=== PATIENT | female | born 1975 | race Caucasian/White ===

== ENCOUNTER 2017-07-09 17:14 | Emergency (ER) | payer BC, OTHER ==
[2017-07-09 17:47] VITALS: BP 98/63
--- NOTE | 2017-07-09 18:07 | UC ---
Skin Complaint HPI - HPI Summary HPI Summary: Is concerned she may have had a tick bite on her neck--attached for less than one day. - History of Current Complaint Chief Complaint: UCSkin Time Seen by Provider: 07/09/17 18:01 Stated Complaint: POSS BUG BITE Hx Obtained From: Patient Hx Last Menstrual Period: 04/06 ?: Yes Onset/Duration: Sudden Onset Timing: Constant Pain Intensity: 0 Pain Scale Used: 0-10 Numeric Location: Discrete Aggravating Factor(s): Nothing Alleviating Factor(s): Nothing Associated Signs & Symptoms: Positive: Negative Related History: Possible Reaction to: Insect - Allergy/Home Medications Allergies/Adverse Reactions: Allergies Allergy/AdvReac Type Severity Reaction Status Date / Time No Known Allergies Allergy Verified 07/09/17 17:32 Home Medications: Home Medications Cholecalciferol TAB* [Vitamin D TAB*] 1,000 unit PO DAILY 07/09/17 [History Confirmed 07/09/17] Naltrexone TAB* 3 mg PO BEDTIME 07/09/17 [History Confirmed 07/09/17] Pnv No.103/Folic/Om3s/Fish Oil [ Gummies/Dha & Fo 0.4-32.5 mg] 1 chw PO DAILY 07/09/17 [History Confirmed 07/09/17] Progesterone SUPP (NF) [Endometrin SUPP (NF)] 100 mg VAGINAL BID 07/09/17 [ History Confirmed 07/09/17] Review of Systems Constitutional: Negative Skin: Negative Eyes: Negative ENT: Negative Respiratory: Negative Cardiovascular: Negative Gastrointestinal: Negative Genitourinary: Negative Motor: Negative Neurovascular: Negative Musculoskeletal: Negative Neurological: Negative Psychological: Negative Is Patient Immunocompromised?: No All Other Systems Reviewed And Are Negative: Yes PMH/Surg Hx/FS Hx/Imm Hx Previously Healthy: Yes - Surgical History Surgical History: Yes Surgery Procedure, Year, and Place: LAPROSCOPIC FOR ENDOMETIOSIS - Family History Known Family History: Positive: None - Social History Occupation: Employed Full-time Lives: With Family Alcohol Use: None Substance Use Type: None Smoking Status (MU): Never Smoked Tobacco Physical Exam Triage Information Reviewed: Yes Appearance: Well-Appearing, No Pain Distress, Well-Nourished Vital Signs: Initial Vital Signs Temp 99.1 F 07/09/17 17:38 Pulse 81 07/09/17 17:38 Resp 20 07/09/17 17:38 BP 98/63 07/09/17 17:38 Pulse Ox 100 07/09/17 17:38 Vital Signs Reviewed: Yes Eye Exam: Normal Eyes: Positive: Conjunctiva Clear ENT Exam: Normal ENT: Positive: Normal ENT inspection, Hearing grossly normal, Pharynx normal, Uvula midline. Negative: Muffled voice, Hoarse voice, Dental tenderness Dental Exam: Normal Neck exam: Normal Neck: Positive: Supple, Nontender Respiratory Exam: Normal Respiratory: Positive: Chest non-tender, Lungs clear, Normal breath sounds, No respiratory distress, No accessory muscle use Cardiovascular Exam: Normal Cardiovascular: Positive: RRR, No Murmur, Pulses Normal, Brisk Capillary Refill Musculoskeletal Exam: Normal Musculoskeletal: Positive: Strength Intact, ROM Intact, No Edema Neurological Exam: Normal Neurological: Positive: Alert, Muscle Tone Normal Psychological Exam: Normal Psychological: Positive: Normal Response To Family Skin: Positive: Other - small "insect bite" right side of neck Course/Dx - Course Course Of Treatment: soap and water wash observe for s/s of Lyme follow with pcp , reassurace provided - Diagnoses Provider Diagnoses: insect bite right side of neck Discharge - Sign-Out/Discharge Documenting (check all that apply): Discharge/Admit/Transfer - Discharge Plan Condition: Stable Disposition: HOME Patient Education Materials: Tick Bite (ED) Referrals: Mare Ann MD [Primary Care Provider] - If Needed - Billing Disposition and Condition Condition: STABLE Disposition: Home
== END 2017-07-09 18:12 | disposition home or self-care (01) ==
LOC: UCCORT 17:14
DX: S10.96XA Insect bite of unspecified part of neck, initial encounter (principal); W57.XXXA Bitten or stung by nonvenomous insect and other nonvenomous arthropods, initial encounter; Y93.9 Activity, unspecified; Y92.9 Unspecified place or not applicable
CPT/HCPCS: 99201; G0463

== ENCOUNTER 2018-01-14 19:10 | Inpatient (IN) | payer OTHER ==
[2018-01-14] MEDS ORDERED: Penicillin G Potassium IV* 5,000,000 UNITS in NS 0.9% 100 ML* 100 ML IVPB ONE (20:10)
[2018-01-14 20:12] LABS: ABS Basophils 0 10^3/ul (0-0.2); ABS Eosinophils 0 10^3/ul (0-0.6); ABS Lymphocytes 1.1 10^3/ul (1.0-4.8); ABS Neutrophils 11.1 10^3/ul (1.5-7.7); ABS Nucleated RBC 0 10^3/ul; Eosinophil % 0.3 %; Hematocrit 40 % (35-47); Hemoglobin 13.7 g/dl (12.0-16.0); Lymphocyte % 8.5 %; Mean Corpuscular HGB Conc 35 g/dl (31-36); Mean Corpuscular Hemoglobin 31 pg (27-31); Mean Corpuscular Volume 90 fL (80-97); Mean Platelet Volume 8.3 fL (7.4-10.4); Nucleated Red Blood Cells % 0.1; Platelet Count 187 10^3/ul (150-450); Red Cell Distribution Width 17 % (10.5-15); White Blood Count 13.3 10^3/ul (3.5-10.8)
--- NOTE | 2018-01-14 21:17 | HP ---
General Information - Reason for Visit labor - General Information Maternal Age: 42 Grav: 1 Para: 0 SAB: 0 IEA: 0 Estimated Due Date: 01/22/18 Determined By: LMP Gestational Age in Weeks/Days: 38 w 6d Maternal Blood Type and Rh: A Positive - Results this Serology/RPR Result: Non-Reactive Rubella Result: Immune HBsAg Result: Negative HIV Result: Negative GBS Culture Result: Positive Past Medical History Past Medical History Comment: infertility, conceived via IVF (donor egg, 's sperm) Past Surgical History Comment: LEEP Laparoscopy for endometriosis (10/2015) Pertinent Family History: See Records - Antepartal Records Antepartal Records: Reviewed, Complicated by: Review of Systems Constitutional: Comfortable CV Complaint: No Respiratory: Shortness of Breath: No Gastrointestinal: No Nausea/Vomiting, Soft Stool Genitourinary: No Leaking Fluid Musculoskeletal: Contractions Neurological: No Headache Movement: Normal Exam Allergies/Adverse Reactions: Allergies No Known Allergies Allergy (Verified 07/09/17 17:32) Vital Signs 01/14/18 19:15 Temperature 99.6 F Pulse Rate 93 Respiratory 17 Rate Blood Pressure 125/70 (mmHg) O2 Sat by Pulse 99 Oximetry Lab Values - Entire Visit: Laboratory Tests 01/14/18 01/14/18 19:55 19:55 WBC 13.3 H RBC 4.40 Hgb 13.7 Hct 40 MCV 90 MCH 31 MCHC 35 RDW 17 H Plt Count 187 MPV 8.3 Neut % (Auto) 83.5 Lymph % (Auto) 8.5 [place] % (Auto) 7.4 Eos % (Auto) 0.3 Baso % (Auto) 0.3 Absolute Neuts (auto) 11.1 H Absolute Lymphs (auto) 1.1 Absolute Monos (auto) 1.0 H Absolute Eos (auto) 0 Absolute Basos (auto) 0 Absolute Nucleated RBC 0 Nucleated RBC % 0.1 Blood Type A Positive Antibody Screen Negative - Measurements Height: 5 ft 3 in Weight: 143 lb Weight in lbs: 143.237245 Body Mass Index (BMI): 25.3 Pre- Weight: 118 lb Weight Gained This : 25 lbs and 0 ozs - Exam Breast: - - soft, no masses Extremities: No Edema Heart: Normal Rhythm/Heart Sounds HEENT: No Significant Findings Lungs: Clear Bilaterally Thyroid: No Thyromegaly - Ultrasound/Biophysical Profile Ultrasound Status: Not Done Targeted Exam Findings Estimated Weight: EFW 6.5 lbs Cervical Exam: 4cm Effacement: 100% Station: -1 Presenting Part: Vertex Membrane Status: Intact EFM Findings - External Monitor Findings Baseline Heart Rate: 140 External Monitor Findings: Accelerations Present, No Pattern of Variable or Late Decelerations, Variability Moderate External Monitor Findings Comment: category 1 Contractions: Moderate Contraction Frequency: every 3 min Assessment/Plan - Assessment elderly primigravida 38w 5 days in labor - Obstetrical Risk Factors Obstetrical Risk Factors: GBS Positive, Assisted Reproduction, IUGR - Plan Plan: Admit - Anticipate Vaginal Delivery Plan Comment: will begin PCN prophylaxis - Date/Time of Admission Date of Admission: 01/14/18 Time of Admission: 19:40
[2018-01-15] MEDS ORDERED: Penicillin G Potassium IV* 2,500,000 UNITS in NS 0.9% 100 ML* 100 ML IVPB SCH (01:00)
[2018-01-15] MEDS ORDERED: Oxytocin in LR* 20 UNITS/1,000 ML BAG IVPB ONE (02:06)
[2018-01-15] MEDS ORDERED: Acetaminophen TAB* 325 MG PO PRN (02:31)
[2018-01-15] MEDS ORDERED: Dibucaine 1% 28.35 GM TUBE PR PRN (02:31)
[2018-01-15] MEDS ORDERED: Glycerin ADULT SUPP PR PRN (02:31)
[2018-01-15] MEDS ORDERED: Witch Hazel PAD* JAR TOPICAL PRN (02:31)
--- NOTE | 2018-01-15 02:46 | PROCNOTE ---
[facility] OB: Delivery Note - Delivery A Date of : 01/15/18 Time of : 01:58 [place] Sex: Male Score 1 Minute: 6 Score 5 Minutes: 8 Gestational Age in Weeks and Days at Delivery: 39 Weeks and 0 Days Delivery Method: Spontaneous Vaginal Labor: Spontaneous Did Patient attempt ?: N/A, No Previous Amniotic Fluid: Clear Anesthesia/Analgesia: Nitrous-Labor Delivered By: Breanna Rogers - Nursery Level of Nursery: Regular/Bedside - Perineum Perineal Injury Comment: R labial laceration, not repaired - Events Delivery Events of Note: Full Course of Antibiotics - Additional Delivery Notes Additional Delivery Notes: SVB L[facility], MADDISON, over intact perineum after 33" 2nd stage. with good HR but decreased tone, resp rate, to warmer for chest PT, CPAP. Placenta osmany, normal in size but maternal cotyledons smoother than usual over large portion. Fundus firm with massage. IV with pitocin running. EBL 200cc. Total LOL 10'15". Baby to maternal abd at approx 15 min/age.
[2018-01-15] MEDS ORDERED: Oxytocin in LR* 20 UNITS/1,000 ML BAG IVPB SCH (03:00)
[2018-01-15] MEDS: Docusate CAP* 100 MG PO SCH ×3 (08:55→21:14)
[2018-01-15] MEDS: Ibuprofen TAB* 600 MG PO PRN (21:14)
[2018-01-16 06:48] LABS: Hematocrit 34 % (35-47); Hemoglobin 11.7 g/dl (12.0-16.0); Mean Corpuscular HGB Conc 35 g/dl (31-36); Mean Corpuscular Hemoglobin 32 pg (27-31); Mean Corpuscular Volume 92 fL (80-97); Platelet Count 147 10^3/ul (150-450); Red Blood Count 3.65 10^6/ul (4.00-5.40); Red Cell Distribution Width 17 % (10.5-15)
[2018-01-16] MEDS ORDERED: Ferrous Gluconate TAB* 324 MG TAB PO SCH (09:00)
[2018-01-16] MEDS: Docusate CAP* 100 MG PO SCH ×2 (09:05→14:11)
[2018-01-16] MEDS: Ibuprofen TAB* 600 MG PO PRN (12:08)
--- NOTE | 2018-01-16 18:47 | PTEDU ---
Patient Name: ABELINO CLARKE ABELINO CLARKE selected video: BBOB: Nurturing Your Gorgeous &Growing Baby by to view on 01/16/2018 at 6:46:14 PM [id number]
[2018-01-17 07:34] VITALS: BP 112/64
[2018-01-17] MEDS: Docusate CAP* 100 MG PO SCH (08:46)
== END 2018-01-17 18:30 | disposition home or self-care (01) | DRG 807 ==
LOC: MCHOBOUT 19:10 → MCHOB 19:38
PROVIDERS: ADMIT Midwife; ATTEND Midwife
PROC: 10E0XZZ Delivery of Products of Conception, External Approach (ICD-10-PCS; principal; 2018-01-15)
PROC: 10907ZC Drainage of Amniotic Fluid, Therapeutic from Products of Conception, Via Natural or Artificial Opening (ICD-10-PCS; 2018-01-15)
DX: O99.824 Streptococcus B carrier state complicating childbirth (principal); Z37.0 Single live birth; O70.0 First degree perineal laceration during delivery; O36.5930 Maternal care for other known or suspected poor fetal growth, third trimester, not applicable or unspecified; Z3A.39 39 weeks gestation of pregnancy
CPT/HCPCS: 36415; 85025; 85027; 86850; 86900; 86901; A9270-GY; J2540

== ENCOUNTER 2018-03-28 19:01 | Emergency (ER) | payer OTHER ==
[2018-03-28 19:57] VITALS: BP 115/62
[2018-03-28] MEDS ORDERED: Cephalexin CAP* 500 MG PO ONE (20:17)
--- NOTE | 2018-03-28 20:18 | UC ---
Breast Complaint - HPI Summary HPI Summary: C/O redness and swelling/ tenderness on the left breast 3 o'clock just lateral to the areola. - History of Current Complaint Hx Obtained From: Patient Breast Chief Complaint: Pain, Inflammation Onset/Duration: Started Days Ago - 1, Worse Since - onset, now with fever Timing: Constant Breast Pain Aggravating Factors: Breast Feeding, Palpation Breast Associated Signs/Symptoms: Fever, Redness, Warmth - Allergy/Home Medications Allergies/Adverse Reactions: Allergies Allergy/AdvReac Type Severity Reaction Status Date / Time No Known Allergies Allergy Verified 03/28/18 19:49 Home Medications: Home Medications Acetaminophen TAB* [Tylenol TAB*] 650 mg PO Q4H PRN 03/28/18 [History Confirmed 03/28/18] Cholecalciferol TAB* [Vitamin D TAB*] 1,000 unit PO DAILY 03/28/18 [History Confirmed 03/28/18] PMH/Surg Hx/FS Hx/Imm Hx Previously Healthy: Yes - Surgical History Surgical History: Yes Surgery Procedure, Year, and Place: LAPROSCOPIC FOR ENDOMETIOSIS - Family History Known Family History: Positive: Cardiac Disease - Social History Occupation: Employed Full-time Lives: With Family Alcohol Use: None Substance Use Type: None Smoking Status (MU): Never Smoked Tobacco Have You Smoked in the Last Year: No - Immunization History Most Recent Influenza Vaccination: 11/2017 Most Recent Pneumonia Vaccination: none Review of Systems All Other Systems Reviewed And Are Negative: Yes Constitutional: Positive: Fever Skin: Positive: Other - redness over the left lateral breast Is Patient Immunocompromised?: No Physical Exam Triage Information Reviewed: Yes Appearance: Well-Appearing, No Pain Distress, Well-Nourished Vital Signs: Initial Vital Signs Temp 98.3 F 03/28/18 19:50 Pulse 91 03/28/18 19:50 Resp 17 03/28/18 19:50 BP 115/62 03/28/18 19:50 Pulse Ox 98 03/28/18 19:50 Vital Signs Reviewed: Yes Eyes: Positive: Conjunctiva Clear ENT: Positive: TMs normal - moderately obstructed by cerumen Neck exam: Normal Respiratory Exam: Normal Cardiovascular Exam: Normal Musculoskeletal Exam: Normal Neurological Exam: Normal Psychological Exam: Normal Skin: Positive: Other - left lateral breast with redness/ warmth and tenderness Breast Pain Course/Dx - Differential Diagnoses Differential Diagnosis/HQI/PQRI: Breast Abscess, Cystic Myalgia, Mastitis - Diagnoses Provider Diagnoses: Acute mastitis of left breast Discharge - Sign-Out/Discharge Documenting (check all that apply): Patient Departure All imaging exams completed and their final reports reviewed: No Studies - Discharge Plan Condition: Stable Disposition: HOME Prescriptions: Cephalexin CAP* [Keflex 500 CAP*] 500 mg PO QID #40 cap Patient Education Materials: Mastitis (ED), Cephalexin (By mouth) Referrals: Mare Ann MD [Primary Care Provider] - Additional Instructions: Do hot packs on the area every 3 hours. Make sure the baby feeds well on that are to avoid an abscess. - Billing Disposition and Condition Condition: STABLE Disposition: Home
== END 2018-03-28 20:27 | disposition home or self-care (01) ==
LOC: UCCORT 19:01
DX: N61.0 Mastitis without abscess (principal)
CPT/HCPCS: 99212; A9270-GY; G0463